=== PATIENT | female | born 1955 | race Caucasian/White ===

== ENCOUNTER 2018-12-23 18:23 | Emergency (ER) | payer MEDICAID ==
[~2018-12-23] VITALS: Ht 170.2 cm; Wt 77.3 kg
[~2018-12-23 18:23] MED LIST: ALBU18HF2 IH; ALEN70TA14 PO; BAC10T PO; CARV3.122 PO; FLUT16SP10 NAS; FURO40TA4 PO; HYDR-3964 PO; HYDR-4383 PO; MULT1TAB74 PO; OMEP40CA37 PO; POTA20TA19 PO; QUET300T2 PO; REM15T PO; VENL150C58 PO; [UNRECOGNIZED DRUG - CODE] PO
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
[2018-12-23 18:30] VITALS: BP 132/103
== END 2018-12-23 19:31 | disposition home or self-care (01) ==
LOC: ER 18:23
DX: S22.32XA Fracture of one rib, left side, initial encounter for closed fracture (principal); S60.212A Contusion of left wrist, initial encounter; I11.0 Hypertensive heart disease with heart failure; I50.9 Heart failure, unspecified; J45.909 Unspecified asthma, uncomplicated; M19.90 Unspecified osteoarthritis, unspecified site; G89.29 Other chronic pain; F41.9 Anxiety disorder, unspecified; Z88.5 Allergy status to narcotic agent; Z88.8 Allergy status to other drugs, medicaments and biological substances; Z79.899 Other long term (current) drug therapy; Z56.0 Unemployment, unspecified; Z60.2 Problems related to living alone; Y08.09XA Assault by strike by other specified type of sport equipment, initial encounter; Y93.89 Activity, other specified; Y92.89 Other specified places as the place of occurrence of the external cause; Y99.8 Other external cause status
CPT/HCPCS: 71101; 73110; 99283

== ENCOUNTER 2020-09-06 21:47 | Emergency (ER) | payer MEDICARE, MEDICAID ==
[~2020-09-06] VITALS: Ht 165.1 cm; Wt 70.0 kg
[~2020-09-06 21:47] MED LIST changes: +MULT-620 PO; -MULT1TAB74 PO; +OMEP40CA13 PO; -OMEP40CA37 PO; +epiNEPHrine 0.1mg/ml 10ml syringe ONE
--- NOTE | 2020-09-06 21:53 | NUR ---
PLEASE REFER TO CODE BLUE DOCUMENTATION FOR ER CODE.
--- NOTE | 2020-09-06 21:54 | NUR ---
DAUGHTER NATE BONDS [phone] CALLED. I TOLD HER THAT HER MOTHER WAS PRESENT IN THE ER AND THAT SHE WAS BEING WORKING ON WE SPEAK
--- NOTE | 2020-09-06 21:59 | NUR ---
DAUGHTERS NUMBER GIVEN TO DR LLANES WHO IS CALLING HER
--- NOTE | 2020-09-06 22:20 | NUR ---
[employer]AL [employer]ODUCT MANAGER ADRIAN NOTIFIED OF PT, RELEASED FROM [employer] TO [employer] [place] [employer] CALLED REFERENCE # [phone]
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
== END 2020-09-07 00:48 | disposition expired ==
LOC: ER 21:48
DX: I46.9 Cardiac arrest, cause unspecified (principal); I50.9 Heart failure, unspecified; I11.0 Hypertensive heart disease with heart failure; J45.909 Unspecified asthma, uncomplicated; G89.29 Other chronic pain; M19.90 Unspecified osteoarthritis, unspecified site; Z87.01 Personal history of pneumonia (recurrent); Z88.7 Allergy status to serum and vaccine; Z88.8 Allergy status to other drugs, medicaments and biological substances; Z79.899 Other long term (current) drug therapy; Z85.3 Personal history of malignant neoplasm of breast; Z90.10 Acquired absence of unspecified breast and nipple; Z56.0 Unemployment, unspecified
CPT/HCPCS: 31500; 92950; 94799; 99285; J0171